=== PATIENT | male | born 1965 | race Caucasian/White ===

== ENCOUNTER → 2018-01-29 | Day surgery (SDC) | payer OTHER ==
[~2018-01-29] MED LIST: BUPIVACAINE HCL 0.5 % INJ/PF 30 ML SDV ONE; LIDOCAINE 1% INJ-PF (10 MG/ML) 30 ML SDV ONE; LIDOCAINE 2% INJ (20 MG/ML) 20 ML MDV ONE; METHYLPREDNISOLONE ACETATE INJ 40 MG/1 ML ML ONE
--- NOTE | 2018-01-29 10:31 | Operative Report ---
PREOPERATIVE DIAGNOSIS: Lumbar Spondylosis POSTOPERATIVE DIAGNOSIS: Lumbar Spondylosis PROCEDURE: Radiofrequency Ablation of medial branches - RT L4 L5 / LT L4 L5 DATE OF PROCEDURE: [01/29/18] ANESTHESIA: [local] COMPLICATIONS: [none] CONSENT: A full description of the procedure was provided including benefits as well as possible complications. All questions were answered and informed consent was given and signed. ASA guidelines for fasting were verified prior to sedation. PROCEDURE IN DETAIL The patient was brought into the fluoroscopy suite and positioned into the prone position on the fluoroscopy table and allowed to adjust to a position of comfort. A grounding pad was placed on the [LEFT] thigh. The lumbar region was widely prepped with a chloraprep solution, allowed to air dry and draped in standard sterile surgical fashion. Local anesthesia was provided by [1] mL of [1 ]% [lidocaine]delivered with a 25 g needle. A 17g 75mm radiofrequency introducer needle was placed to the planned anatomic targets guided with intermittent fluoroscopy with a perpendicular approach to terminally place at the junction of the superior articular process and the transverse process of the [RIGHT] L5 and the base of the sacral ala on the [ RIGHT] for the L5 medial branch nerve. The stylets were removed and radiofrequency probes with a 4mm active tip were then inserted. Needle tip position of the probes was verified in the AP, oblique, and lateral views. At each site, the medial branch nerve was stimulated at 2 Hz to a maximum 1-2 volts determined to finalize safe needle and electrode placement. The patient was awake and responsive during this portion of the procedure. Each target was anesthetized with 1-2 mL of [2]% [lidocaine] for anesthesia for lesioning and then each target was lesioned at 80 degrees Celsius for 2 minutes and 30 seconds. Tissue impedences were noted to be between 250 and 500 Ohms. The procedure was the performed in the exact same manner on the left side. Once completed, a solution of 40mg depomedrol and 0.25% sensorcaine was injected ( 1cc at each level). Electrodes and needles were then removed and bandages placed over the needle placement sites, the patient then returned to the supine position on a stretcher and transported to the recovery room without hemodynamic , neurologic, or allergic reactions. Fluoroscopic images were printed for hard copy recording and digitally archived. POST PROCEDURE EVALUATION: The patient was comfortable in the recovery room. The patient is aware that pain may worsen before remitting and 4 6 weeks may be required prior to the onset of pain relief. IMPRESSION: 1. Technically successful [bilateral] L4 L5 medial branch radiofrequency neurotomy for denervation without complication. 2. RTC in [4] weeks. 3. Estimated Blood Loss: [2cc] 4. Fluoroscopy time: see nursing record
== END ==
LOC: RAD 09:10
PROVIDERS: ATTEND Student in an Organized Health Care Education/Training Program
DX: M47.816 Spondylosis without myelopathy or radiculopathy, lumbar region (principal)
CPT/HCPCS: 64635 ×2; 64636 ×2; J3490 ×3; J1020

== ENCOUNTER 2019-09-22 05:29 | Observation (INO) | payer OTHER ==
[~2019-09-22 05:29] MED LIST changes: -BUPIVACAINE HCL 0.5 % INJ/PF 30 ML SDV ONE; +BUPIVACAINE INJ/PF LIPOSOME/PF 266 MG/20 ML SDV INJ PRN; +CEFAZOLIN INJ 1 GM VIAL IV PRN; +IBUPROFEN 800 MG in NORMAL SALINE 250 ML IV PRN; +LACTATED RINGERS 1000 ML IV PRN; +LIDOCAINE 0.5% INJ-PF (5 MG/ML) 50 ML SDV SUBCUT PRN; -LIDOCAINE 1% INJ-PF (10 MG/ML) 30 ML SDV ONE; -LIDOCAINE 2% INJ (20 MG/ML) 20 ML MDV ONE; -METHYLPREDNISOLONE ACETATE INJ 40 MG/1 ML ML ONE; +OXYCODONE HCL SR 10 MG TABLET PO PRN; +PANTOPRAZOLE SODIUM 20 MG TABLET.DR PO PRN; +VANCOMYCIN HCL 1,000 MG in DEXTROSE 5%-WATER 250 ML IV PRN
[2019-09-22] MEDS ORDERED: OXYCODONE HCL SR 10 MG TABLET PO ONE (05:57)
[2019-09-22] MEDS ORDERED: CEFAZOLIN INJ 1 GM VIAL ONE (05:57)
[2019-09-22] MEDS ORDERED: PROPOFOL INJ 200 MG/20 ML VIAL IV ONE ×3 (06:41→08:52)
[2019-09-22] MEDS ORDERED: FENTANYL CITRATE INJ/PF 100 MCG/2 ML AMPUL ONE (06:41)
[2019-09-22] MEDS ORDERED: MIDAZOLAM 2 MG/2 ML INJ ONE (06:41)
[2019-09-22] MEDS ORDERED: TRANEXAMIC ACID INJ/PF 1,000 MG/10 ML SDV ONE (07:08)
[2019-09-22] MEDS ORDERED: BUPIVACAINE INJ/PF LIPOSOME/PF 266 MG/20 ML SDV ONE (07:13)
[2019-09-22] MEDS ORDERED: OXYCODONE-ACETAMINOPHEN 5-325 MG TABLET PO PRN ×2 (08:00)
[2019-09-22] MEDS ORDERED: MORPHINE SULFATE 10 MG/ML INJ IV PRN (08:00)
[2019-09-22] MEDS ORDERED: DIPHENHYDRAMINE HCL 50 MG/ML VIAL IV PRN ×2 (08:00→08:27)
[2019-09-22] MEDS ORDERED: MEPERIDINE HCL/PF INJ 25 MG/1 ML DISP.SYRIN IV PRN (08:00)
[2019-09-22] MEDS ORDERED: FENTANYL CITRATE INJ/PF 100 MCG/2 ML AMPUL IV PRN ×3 (08:00)
[2019-09-22] MEDS ORDERED: PROMETHAZINE HCL INJ 25 MG/1 ML VIAL IV PRN ×2 (08:00)
[2019-09-22] MEDS ORDERED: RINGERS SOLUTION,LACTATED 1,000 ML IV PRN (08:27)
[2019-09-22] MEDS ORDERED: MAG HYDROX/AL HYDROX/SIMETH SUSP 30 ML UDCUP PO PRN (08:27)
[2019-09-22] MEDS ORDERED: ZOLPIDEM TARTRATE 5 MG TABLET PO PRN (08:27)
[2019-09-22] MEDS ORDERED: ONDANSETRON 4 MG TAB.RAPDIS PO PRN (08:27)
[2019-09-22] MEDS ORDERED: ONDANSETRON HCL INJ/PF 4 MG/2 ML SDV IV PRN (08:27)
--- NOTE | 2019-09-22 08:32 | Operative Report ---
Operative Report DATE OF SURGERY: 09/22/19 PREOPERATIVE DIAGNOSIS: Right knee arthritis OPERATION: Right knee arthroplasty SURGEON: CLIFTON GONZALEZ ANESTHESIA: Spinal TISSUE REMOVED OR ALTERED: Bone to pathology ESTIMATED BLOOD LOSS: 50 PROCEDURE: Implants used: Femur: Palmetto triathlon size 7 CR uncemented femur Tibia: 7 cemented tibia Tibial liner: 9 mm CS insert Patella: 40 mm uncemented patella Procedure with the patient supine on the operating table the right the limb is prepped and draped in a sterile fashion. The limb was elevated for exsanguination and the tourniquet inflated to 280 torr. A standard midline median parapatellar approach the knee is taken. Access is gained to the femoral canal through the intercondylar notch. Intramedullary alignment instrumentation used to resect 10 mm of distal femur in 5 of valgus. Sizing guide indicated a size 7 femur. Appropriate cutting jig is then used to fashion anterior posterior and chamfer cuts. A trial reduction femurs performed and this is judged to be adequate. Attention was next turned to the tibia. Using an extra medullary alignment system 9 millimeters was resected off the lateral tibial plateau. This is sized to a size Marshall tibia. A trial reduction was now performed with a 7 femur and a 7 tibia using a 9 millimeters spacer. It is full extension and central patellofemoral tracking. The articular surface the patella was next resected using an oscillating saw. All trial implants were removed. The above implants are impacted into position. The tourniquet was deflated hemostasis obtained the wound is then closed in layers using interrupted Vicryl followed by symone. A sterile compressive dressing was applied and the patient returned to recovery room in satisfactory condition.
[2019-09-22] MEDS ORDERED: DEXTROSE 40% GEL 15 GM TUBE PO PRN (09:00)
[2019-09-22] MEDS ORDERED: GLUCAGON,HUMAN RECOMB 1 MG INJ IM PRN (09:00)
[2019-09-22] MEDS ORDERED: DEXTROSE 50%-WATER SYRINGE 12.5 GM/25 ML DOSE IV PRN (09:00)
[2019-09-22] MEDS ORDERED: DEXTROSE 50%-WATER SYRINGE 25 GM/50 ML DOSE IV PRN (09:00)
[2019-09-22] MEDS ORDERED: DEXTROSE 40% GEL 15 GM TUBE X 2 PO PRN (09:00)
--- NOTE | 2019-09-22 09:42 | RADIOLOGY REPORT (SQ) ---
EXAM DESCRIPTION: KNEE RIGHT 2 VIEWS COMPLETED DATE/TIME: 09/22/2019 9:30 am REASON FOR STUDY: Post OP -Long Cassette in PACU M17.11 UNILATERAL PRIMARY OSTEOARTHRITIS, RIGHT KN EE COMPARISON: None. NUMBER OF VIEWS: Two view(s). TECHNIQUE: Digital radiographic images of the right knee post-procedure. LIMITATIONS: None. FINDINGS: BONES: No worrisome or unexpected findings post-procedure. DEVICE: Total knee arthroplasty SOFT TISSUES: No worrisome findings. Expected postoperative soft tissue changes. IMPRESSION: SATISFACTORY POSTOPERATIVE RIGHT KNEE. TECHNICAL DOCUMENTATION: JOB ID: [id number] [employer]- All Rights Reserved Reading location - IP/workstation name: [email or web address]
[2019-09-22] MEDS ORDERED: RINGERS SOLUTION,LACTATED 500 ML IV PRN (09:51)
[2019-09-22] MEDS ORDERED: TRANEXAMIC ACID INJ/PF 1,000 MG/10 ML SDV IV ONE (10:00)
[2019-09-22] MEDS ORDERED: INFLUENZA QUAD (6MOS+) 2019-20 VAC 0.5 ML SYR IM ONE (11:27)
[2019-09-22] MEDS: INSULIN LISPRO 100 UNIT/ML 3 ML VIAL SUBCUT SCH ×3 (12:08→21:29)
[2019-09-22] MEDS ORDERED: ONDANSETRON HCL INJ/PF 4 MG/2 ML SDV ONE (13:45)
[2019-09-22] MEDS ORDERED: ROCURONIUM BROMIDE INJ 50 MG/5 ML VIAL IV ONE (13:45)
[2019-09-22] MEDS ORDERED: LIDOCAINE 2% INJ-PF (20 MG/ML) 2 ML AMPUL ONE (13:45)
[2019-09-22] MEDS ORDERED: PHENYLEPHRINE HCL INJ/PF 10 MG/1 ML SDV ONE (13:45)
[2019-09-22] MEDS ORDERED: SUCCINYLCHOLINE CHLORIDE INJ 200 MG/10 ML VIAL ONE (13:45)
[2019-09-22] MEDS: OXYCODONE HCL IR 5 MG TABLET PO PRN ×2 (14:16→20:33)
[2019-09-22] MEDS: IBUPROFEN 800 MG in NORMAL SALINE 250 ML IV SCH ×2 (14:16→22:19)
[2019-09-22] MEDS: ASPIRIN 81 MG TABLET, ENT COATED PO SCH (17:49)
[2019-09-22] MEDS: OXYCODONE HCL SR 10 MG TABLET PO SCH (17:49)
[2019-09-22] MEDS ORDERED: VANCOMYCIN HCL 1,000 MG in DEXTROSE 5%-WATER 250 ML IV ONE (20:30)
[2019-09-22] MEDS: ACETAMINOPHEN 325 MG TABLET PO PRN (21:24)
[2019-09-23] MEDS: OXYCODONE HCL IR 5 MG TABLET PO PRN ×3 (03:15→20:10)
[2019-09-23 05:10] LABS: HEMATOCRIT 40.4 % (37.9-51.0); MEAN CORPUSCULAR HEMOGLOBIN 31.5 pg (27.0-33.4); MEAN CORPUSCULAR HGB CONC 34.6 g/dL (32.0-36.0); MEAN CORPUSCULAR VOLUME 91 fl (80-97); PLATELET COUNT 241 10^3/uL (150-450); RED BLOOD COUNT 4.43 10^6/uL (4.35-5.55); RED CELL DISTRIBUTION WIDTH 13.5 % (11.5-14.0); WHITE BLOOD COUNT 9.9 10^3/uL (4.0-10.5)
[2019-09-23] MEDS: IBUPROFEN 800 MG in NORMAL SALINE 250 ML IV SCH ×3 (05:22→22:17)
[2019-09-23] MEDS: OXYCODONE HCL SR 10 MG TABLET PO SCH ×2 (05:23→17:05)
[2019-09-23 05:33] LABS: ANION GAP 9 (5-19); BLOOD UREA NITROGEN 14 mg/dL (7-20); CALCIUM 8.7 mg/dL (8.4-10.2); CARBON DIOXIDE 30 mmol/L (22-30); CHLORIDE 97 mmol/L (98-107); GLUCOSE 143 mg/dL (75-110); POTASSIUM 4.2 mmol/L (3.6-5.0)
--- NOTE | 2019-09-23 07:09 | PDOC DISCHARGE SUMMARY ---
Impression - Admit/DC Date/PCP Admission Date/Primary Care Provider: 09/22/19 05:29 MANUEL BLANKENSHIP JR, MD Discharge Date: 09/23/19 - Additional Information Resuscitation Status: Full Code Discharge Diet: Regular Discharge Activity: Balance Activity w/Rest, No tub bath Referrals: MANUEL BLANKENSHIP JR, MD [Primary Care Provider] - Home Medications: Dulaglutide [Trulicity] 1.5 mg SQ TOBIN@1000 09/18/19 Duloxetine HCl [Cymbalta] 30 mg PO PRN PRN 09/18/19 Hydrochlorothiazide 12.5 mg PO DAILY 09/18/19 Levothyroxine Sodium [Synthroid 0.112 mg Tablet] 0.112 mg PO DAILY 09/18/19 Lisinopril [Prinivil 10 mg Tablet] 10 mg PO DAILY 09/18/19 Pantoprazole Sodium [Protonix [address] Tablet] 40 mg PO DAILY 09/18/19 Rizatriptan Benzoate [Maxalt] 5 mg PO PRN PRN 09/18/19 Rosuvastatin Calcium [Crestor 20 mg Tablet] 20 mg PO QHS 09/18/19 Metformin HCl 1,000 mg PO BIDBS 09/22/19 History of Present Illiness History of Present Illness: BRENNAN GONZALEZ is a 53 year old male 53-year-old white male with progressive right knee pain and functional disability second osteoarthritis. Patient is admitted for elective right knee arthroplasty. Hospital Course Hospital Course: Patient is admitted through the operating room where he undergoes uncomplicated right knee arthroplasty. He makes excellent progress with physical therapy ambulating in the halls independently on the day of surgery. Compressive dressing is removed on the morning of postop day 1. Underlying OpSite dressing is clean dry and intact. Physical Exam Vital Signs: Temp Pulse Resp BP Pulse Ox 37.1 C 73 16 111/58 L 92 09/23/19 00:36 09/23/19 00:36 09/23/19 00:36 09/23/19 00:36 09/23/19 00:36 Intake & Output 09/22/19 09/23/19 09/24/19 06:59 06:59 06:59 Intake Total 0 3596 Output Total 260 Balance 0 3336 Weight 120.5 kg General appearance: PRESENT: no acute distress, mild distress Head exam: PRESENT: normocephalic Respiratory exam: PRESENT: unlabored Cardiovascular exam: PRESENT: RRR Pulses: PRESENT: +1 pedal pulses bilateral Vascular exam: PRESENT: normal capillary refill GI/Abdominal exam: PRESENT: soft Rectal exam: PRESENT: deferred Musculoskeletal exam: PRESENT: other - Right lower extremity dressing clean dry and intact. Minimal pedal edema. Distal neurovascular examination is intact. Neurological exam: PRESENT: alert, awake, oriented to person, oriented to place, oriented to time, oriented to situation. ABSENT: motor sensory deficit Psychiatric exam: PRESENT: appropriate affect, normal mood. ABSENT: homicidal ideation, suicidal ideation Skin exam: PRESENT: dry, intact, warm. ABSENT: cyanosis, rash Results Laboratory Results: WBC 9.9 10^3/uL (4.0-10.5) 09/23/19 04:38 RBC 4.43 10^6/uL (4.35-5.55) 09/23/19 04:38 Hgb 14.0 g/dL (13.5-17.0) 09/23/19 04:38 Hct 40.4 % (37.9-51.0) 09/23/19 04:38 MCV 91 fl (80-97) 09/23/19 04:38 MCH 31.5 pg (27.0-33.4) 09/23/19 04:38 MCHC 34.6 g/dL (32.0-36.0) 09/23/19 04:38 RDW 13.5 % (11.5-14.0) 09/23/19 04:38 Plt Count 241 10^3/uL (150-450) 09/23/19 04:38 Sodium 136.1 mmol/L (137-145) L 09/23/19 04:38 Potassium 4.2 mmol/L (3.6-5.0) 09/23/19 04:38 Chloride 97 mmol/L (98-107) L 09/23/19 04:38 Carbon Dioxide 30 mmol/L (22-30) 09/23/19 04:38 Anion Gap 9 (5-19) 09/23/19 04:38 BUN 14 mg/dL (7-20) 09/23/19 04:38 Creatinine 0.93 mg/dL (0.52-1.25) 09/23/19 04:38 Est GFR ( Amer) > 60 (>60) 09/23/19 04:38 Est GFR (MDRD) Non-Af > 60 (>60) 09/23/19 04:38 Glucose 143 mg/dL (75-110) H 09/23/19 04:38 POC Glucose 153 mg/dL (70-110) H 09/23/19 06:36 Calcium 8.7 mg/dL (8.4-10.2) 09/23/19 04:38 Impressions: Knee X-Ray 09/22/19 08:29 IMPRESSION: SATISFACTORY POSTOPERATIVE RIGHT KNEE. Plan Plan of Treatment: Patient to be discharged with DME and home health services on a weightbearing as tolerated basis. Follow-up with Dr. Alba and [facility] for surgery in 2 weeks for staple removal. Time Spent: Less than 30 Minutes Stroke Is this a Stroke Patient?: No Stroke Pt being discharged on Anti-thrombolytic therapy?: Yes Acute Heart Failure - Is this a Heart Failure Patient?: No
[2019-09-23] MEDS: INSULIN LISPRO 100 UNIT/ML 3 ML VIAL SUBCUT SCH ×4 (07:59→22:17)
[2019-09-23] MEDS: PRENATAL VITAMIN W DHA CAPSULE PO SCH (09:25)
[2019-09-23] MEDS: SENNOSIDES/DOCUSATE 8.6-50 MG 1 EACH TABLET PO SCH ×2 (09:25→17:05)
[2019-09-23] MEDS: ASPIRIN 81 MG TABLET, ENT COATED PO SCH (17:05)
[2019-09-24 05:06] LABS: HEMATOCRIT 37.1 % (37.9-51.0); HEMOGLOBIN 12.8 g/dL (13.5-17.0); MEAN CORPUSCULAR HEMOGLOBIN 31.6 pg (27.0-33.4); MEAN CORPUSCULAR HGB CONC 34.6 g/dL (32.0-36.0); MEAN CORPUSCULAR VOLUME 92 fl (80-97); PLATELET COUNT 233 10^3/uL (150-450); RED BLOOD COUNT 4.05 10^6/uL (4.35-5.55); RED CELL DISTRIBUTION WIDTH 13.8 % (11.5-14.0); WHITE BLOOD COUNT 8.6 10^3/uL (4.0-10.5)
[2019-09-24] MEDS: OXYCODONE HCL SR 10 MG TABLET PO SCH (05:16)
[2019-09-24] MEDS: IBUPROFEN 800 MG in NORMAL SALINE 250 ML IV SCH ×2 (05:17→05:40)
[2019-09-24] MEDS: ACETAMINOPHEN 325 MG TABLET PO PRN ×2 (05:40→11:26)
[2019-09-24] MEDS: INSULIN LISPRO 100 UNIT/ML 3 ML VIAL SUBCUT SCH ×2 (08:00→11:55)
[2019-09-24] MEDS: OXYCODONE HCL IR 5 MG TABLET PO PRN (08:52)
[2019-09-24 11:40] VITALS: BP 123/76
[2019-09-24] MEDS: SENNOSIDES/DOCUSATE 8.6-50 MG 1 EACH TABLET PO SCH (11:53)
[2019-09-24] MEDS: PRENATAL VITAMIN W DHA CAPSULE PO SCH (11:53)
== END 2019-09-24 13:00 | disposition home health service (06) ==
LOC: INTOOBSV 05:29 → INOR 05:29 → 4W 10:05
PROVIDERS: ADMIT Orthopaedic Surgery; ATTEND Orthopaedic Surgery
DX: M17.11 Unilateral primary osteoarthritis, right knee (principal); Z79.899 Other long term (current) drug therapy; K21.9 Gastro-esophageal reflux disease without esophagitis; E11.9 Type 2 diabetes mellitus without complications; E78.5 Hyperlipidemia, unspecified; I10 Essential (primary) hypertension; Z79.84 Long term (current) use of oral hypoglycemic drugs
CPT/HCPCS: 27447; C1776; 01402; 36415; 80048; 82962; 85027; 88305; 88311; 94799; C9290; G0378; J0330; J0690; J1741; J2250; J2370; J2405; J2704; J3010; J3370; J3490; J7050; J7060